=== PATIENT | male | born 1965 | race Caucasian/White ===

== ENCOUNTER 2021-06-18 10:32 | Outpatient (CLI) | payer OTHER ==
--- NOTE | 2021-06-18 11:28 | XRay Report ---
CHEST 2 VIEWS INDICATION / CLINICAL INFORMATION: RULE OUT ACTIVE TB. COMPARISON: None available. FINDINGS: SUPPORT DEVICES: None. HEART / MEDIASTINUM: No significant abnormality. LUNGS / PLEURA: No significant pulmonary or pleural abnormality. No pneumothorax. ADDITIONAL FINDINGS: No significant additional findings. IMPRESSION: 1. No acute findings. Signer Name: Ramon Estrada MD Signed: 06/18/2021 11:23 AM Workstation Name: [id number]
== END 2021-06-18 10:33 | disposition home or self-care (01) ==
LOC: XRAY 10:32
PROVIDERS: ATTEND Psychiatry & Neurology Psychiatry
DX: A15.9 Respiratory tuberculosis unspecified (principal)
CPT/HCPCS: 71046